=== PATIENT | female | born 1980 | race Caucasian/White ===

== ENCOUNTER 2018-07-03 21:56 | Emergency (ER) | payer MEDICAID ==
[2018-07-03 23:24] LABS: ADD MAN DIFF? NO
[2018-07-03] MEDS: METOCLOPRAMIDE 10 MG INJ IV (23:24)
[2018-07-03] MEDS: DIPHENHYDRAMINE 50 MG INJ IV (23:24)
[2018-07-03] MEDS: KETOROLAC 30 MG INJ IV (23:24)
[2018-07-03] MEDS: SOD CHLORIDE 0.9% 1,000 ML IV (23:24)
[2018-07-03 23:26] LABS: BASOPHIL # 0.1 10^3/ul (0.0-0.1); BASOPHILS % 0.8 % (0.0-2.0); EOSINOPHILS # 0.4 10^3/ul (0.0-0.5); EOSINOPHILS % 3.9 % (0.0-7.0); HEMATOCRIT 41.2 % (37.0-47.0); HEMOGLOBIN 13.3 g/dl (12.0-16.0); LYMPHOCYTES # 1.4 10^3/ul (0.8-2.9); LYMPHOCYTES % 13.5 % (15.0-51.0); MEAN CORPUSCULAR HEMOGLOBIN 26.5 pg (29.0-33.0); MEAN CORPUSCULAR HGB CONC 32.3 g/dl (32.0-37.0); MEAN CORPUSCULAR VOLUME 82.2 fl (82.0-101.0); MEAN PLATELET VOLUME 9.2 fl (7.4-10.4); MONOCYTE # 0.5 10^3/ul (0.3-0.9); MONOCYTES % 4.8 % (0.0-11.0); NEUTROPHIL # 8.1 10^3/ul (1.6-7.5); NEUTROPHILS % 76.7 % (39.0-77.0); PLATELET COUNT 335 10^3/UL (140-415); RED BLOOD COUNT 5.01 10^6/ul (4.20-5.40)
[2018-07-03 23:26] LABS: WHITE BLOOD COUNT 10.5 10^3/ul (4.8-10.8)
[2018-07-03 23:46] LABS: INR 0.89; PROTIME 12.1 Sec (11.9-14.9); PT RATIO 0.9
[2018-07-03 23:47] LABS: ANION GAP 11 (5-13); BLOOD UREA NITROGEN 15 mg/dl (7-20); CALCIUM 9.4 mg/dl (8.4-10.2); CARBON DIOXIDE 28 mmol/L (21-31); CHLORIDE 102 mmol/L (97-110); CREATININE 0.75 mg/dl (0.44-1.00); Estimated GFR > 60 mL/min (>60); GLUCOSE 122 mg/dl (70-220); PARTIAL THROMBOPLASTIN TIME 26.4 Sec (23.0-35.0); POTASSIUM 3.9 mmol/L (3.5-5.1); SODIUM 141 mmol/L (135-144)
== END 2018-07-04 00:42 | disposition home or self-care (01) ==
LOC: FTE 07-04 00:42
DX: R51 Headache (principal)
CPT/HCPCS: 36415; 70450; 80048; 81025; 85025; 85610; 85730; 96374; 96375; 99285-25